=== PATIENT | male | born 1985 | race Caucasian/White ===

== ENCOUNTER 2017-01-10 16:25 | Emergency (ER) | payer MEDICAID ==
[2017-01-10 16:44] VITALS: BP 118/71
== END 2017-01-10 17:48 | disposition home or self-care (01) ==
LOC: ED 16:25
DX: B07.9 Viral wart, unspecified (principal)

== ENCOUNTER 2017-11-10 13:05 | Emergency (ER) | payer OTHER ==
[~2017-11-10] VITALS: Ht 170.2 cm; Wt 72.6 kg
[2017-11-10 13:15] VITALS: BP 130/73; Ht 170.2 cm; Wt 72.6 kg
== END 2017-11-10 13:48 | disposition other institution (70) ==
LOC: ED 13:05
DX: Z02.89 Encounter for other administrative examinations (principal)